=== PATIENT | female | born 1955 | race Caucasian/White ===

== ENCOUNTER 2025-03-24 01:49 | Day surgery (SDC) | payer MEDICARE, SELFPAY ==
[2025-03-14 13:24] VITALS: BMI 22.9
--- OUTSIDE RECORDS SUMMARY | 2025-03-24 01:51 | XMS_ITS | Encounter Summary ---
Author Organization [facility] Healthcare Address [address] [place] [address] Care Team Providers Care Concrete Mixing Plant Superintendent Name Role Phone Vikas Barrera MD Primary Care Provider Encounter Details Date Type Department Care Team (Late st Contact Info) Description 03/22/2025 Telephone [facility] Medical Group Diabetes Endocrine Care at [address] [place] [address] Dede Hess, [address] [facility] [address] [place] [id number] Social History Tobacco Use Types Packs/Day Years Used Date Smoking Tobacco: Never Smokeless Tobacco: Never Alcohol Use Standard Drinks/Week Comments Yes 0 (1 standard drink = 0.6 oz pur e alcohol) AUDIT-C Answer Date Recorded Q1: How often do you have a drink containing alcohol? Never 07/08/2023 Q2: How many drinks containi ng alcohol do you have on a typical day when you are drinking? Patient does not drink Q3: How often do you have si x or more drinks on one occasion? Never 07/08/2023 PHQ-2 Answer Date Recorded PHQ-2 Total Score (If total score is 3 or more points, staff should administer the PHQ-9) 0 12/16/2024 Personal Safety Answer Date Recorded Have you ever been in or are you currently in a harmful physical or emotional relationship or is someone making you feel afraid or unsafe? 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 Patient voices understanding. * Telephone Encounter - Kelsie Minor MA - 03/22/2025 10:08 AM CDT Patient called stating she is having a colonoscopy and the GI doctor told her to call Dr. Hess for insulin recommendations. Please advise, thank you documented in this encounter Plan of Treatment Not on file documented as of this encounter Visit Diagnoses Not on filedocumented in this encounter Additional Health Concerns Infection Onset Date Last Indicated Resolved Time MDR gram neg/ESBL Comment:ESBL E.coli+Urine 04/23/18 04/23/2018 04/23/2018 documented as of this encounter Care Teams Concrete Mixing Plant Superintendent Relationship Specialty Start Date End Date Vikas Barrera MD PCP - General 10/18/16 documented as of this encounter
--- OUTSIDE RECORDS SUMMARY | 2025-03-24 01:51 | XMS_ITS | Encounter Summary ---
Author Organization [facility] Healthcare Address [address] [place] [address] Care Team Providers Care Metal Crafts Teacher Name Role Phone Vikas Barrera MD Primary Care Provider Reason for Visit * Reason Onset Date Comments Information Only 03/23/2025 Encounter Details Date Type Department Care Team (Late st Contact Info) Description 03/23/2025 Nurse Triage [facility] Medical Group Primary Care at [address] [place] [address] Vikas Barrera MD [address] [place] [address] [address] [place] [address] Social History Tobacco Use Types Packs/Day Years [...] on file 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 This nurse referred to not in chart about taking half of insulin prior to procedure. Pt understands the amount she should take. Home care: Pt provided with care advise. Monitor for changing or worsening symptom. Instructed evaluation available 10/02. Disposition Home Care Reason for Disposition General information question, no triage required and triager able to answer question Protocols Used Information Only Call - No [id number]-Tivor-EX * Telephone Encounter - Yazmin Hyatt RN - 03/23/2025 1:55 PM CDT Regarding: Colonoscopy procedure ----- Message from Suzi Dumont sent at 03/23/2025 10:05 AM CDT ----- Symptom Based Call Chief Complaint(s): Colonoscopy procedure Duration: 03/24/25 What type of symptom(s) is the patient experiencing? Non-Emergent. Is this a new or reoccurring symptom(s)? new What have you tried to help your symptom(s)? N/A Why was appointment not scheduled? Requesting advice from clinical senior stereo compiler team lead. Additional Comments: Pt asking should she take her insulin tomorrow before her colonoscopy procedure? Does message need to be routed? Yes-Action Needed documented in this encounter Plan of Treatment Not on file documented as of this encounter Visit Diagnoses Not on filedocumented in this encounter Additional Health Concerns Infection Onset Date Last Indicated Resolved Time MDR gram neg/ESBL Comment:ESBL E.coli+Urine 04/23/18 04/23/2018 04/23/2018 documented as of this encounter Care Teams Metal Crafts Teacher Relationship Specialty Start Date End Date Vikas Barrera MD PCP - General 10/18/16 documented as of this encounter
--- OUTSIDE RECORDS SUMMARY | 2025-03-24 01:51 | XMS_ITS | Encounter Summary ---
Author Organization [facility] Healthcare Address [address] [place] [address] Care Team Providers Care Online Merchant Name Role Phone Vikas Barrera MD Primary Care Provider Reason for Visit * Reason Onset Date Comments Scheduling Appointments 01/03/2021 appt rem blkae; no answer Encounter Details Date Type Department Care Team (Late st Contact Info) Description 01/03/2021 Telephone [facility] [address] [place] [address] Fannie Moss RT Scheduling Appointments (appt reminder; no answer) Social History Tobacco Use Types Packs/Day Years Used Date Smoking Tobacco: Never Smokeless Tobacco: Never Alcohol Use Standard Drinks/Week Comments Yes 0 (1 standard drink = 0.6 oz pur e alcohol) PHQ-2 Answer Date Recorded PHQ-2 Total Score (If total score is 3 or more points, staff should administer the PHQ-9) 0 12/21/2020 Comments No Sex and Gender Information Value Date Recorded Sex Assigned at Not on file 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
--- OUTSIDE RECORDS SUMMARY | 2025-03-24 01:51 | XMS_ITS | Clinical Summary ---
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 Wool Hives Medium 07/03/2023 Medications blood-glucose sensor device Change sensor every 10 days DX E11.65, Z79.4 9 Device 3 02/20/20 19 Active blood glucose diagnostic (OneTouch Verio test strips) strip USE ONE STRIP IN METER THREE TIMES A DAY 300 strip 3 04/15/20 22 Active timolol (TIMOPTIC) 0.5 % ophthalmic solution INSTILL 1 DROP INTO BOTH EYES EVERY DAY 04/03/20 23 Active pen needle, diabetic 32 gauge x 5/32 needle Use to inject insulin up to 4times/day. E11.65 150 each 11 08/12/19 24 Active prednisoLONE acetate (PRED FORTE) 1 % ophthalmic suspensionIndica tions:Unspecifie d corneal scar and opacity Administer 1 drop into both eyes daily 5 mL 11 01/15/20 24 Active insulin glargine (LANTUS) 100 unit/mL (3 mL) pen for injection Inject 15 Units under the skin daily before breakfast E11.9 15 mL 4 09/22/19 25 Active HumaLOG 100 unit/mL pen for injectionIndicat ions:type 2 diabetes mellitus ADMINISTER 3-4 UNITS UNDER THE SKIN THREE TIMES DAILY. Total daily dose - 20 units. E11.9 15 mL 3 09/22/19 25 Active losartan (COZAAR) 25 mg tablet TAKE 1 TABLET(25 MG) BY MOUTH DAILY 100 tablet 1 11/18/19 25 Active linaCLOtide (LINZESS) 145 mcg capsuleIndicatio ns:chronic idiopathic constipation Take 1 capsule (145 mcg total) by mouth daily 30 capsule 11 12/17/19 25 Active hydrocortisone (ANUSOL-HC) 25 mg suppository Insert 1 suppository (25 mg total) into the rectum 2 (two) times a day as needed for hemorrhoids 10 suppository 11 12/17/19 25 Active hydrocortisone (ANUSOL-HC) 2.5 % rectal cream Insert into the rectum 4 (four) times a day as needed for hemorrhoids (rectal discomfort) Apply to affected areas 30 g 12/30/19 25 Active insulin lispro-aabc (LYUMJEV) 100 unit/mL pen for injection Take 3-4 units three times daily with meals 15 mL 3 01/04/20 25 Active Active Problems Problem Noted Date Diagnosed Date Constipation 10/28/2024 Multiple thyroid nodules 07/07/2023 Assessment & Plan (09/02/2023 3:18 PM CONTINUOUS PROCESS COFFEE ROASTER): 08/13. Solid 0.7 cm nodule in the superior right thyroid (TI-RADS 4) does not meet criteria for biopsy or follow-up. Solid 0.8 cm nodule in the inferior right thyroid (TI-RADS 3) does not meet criteria for biopsy or follow-up. Solid 1.9 cm nodule in the mid left thyroid (TI-RADS 3) does not meet criteria for biopsy. Follow-up as below. Solid 1.8 cm nodule in the inferior left thyroid (TI-RADS 4) meets criteria for biopsy at this time.. Opted not to have fine needle biopsy would prefer to have a repeat ultrasound in 6 months for further evaluation Ultrasound ordered Assessment & Plan (07/07/2023 4:01 PM CONTINUOUS PROCESS COFFEE ROASTER): Continue nightguard No masses or lesions noted to the oropharynx Aquaphor ointment to areas of itching Increase Zyrtec twice daily Thyroid Ultrasound Sinusitis, acute 12/19/2022 Assessment & Plan (12/19/2022 2:03 PM CDT): Will treat with azithromycin as this has helped sinus infections in the past. She knows that this likely represents allergic rhinitis. Add fluticasone to her Zyrtec. Call back if no improvement. Dexcom 7 continuous glucose monitoring device Assessment & Plan (09/21/2024 1:42 PM CONTINUOUS PROCESS COFFEE ROASTER): Continuous glucose monitor (cgm) applied from 09/08/2024 to 09/21/2024 This device was placed for monitor and treatment of blood sugar. Interpretation of data- average blood sugar 157. In target range 76%. 0% hypoglycemia. 24% hyperglycemia. Postprandial hyperglycemia mainly after dinner. Assessment & Plan (05/24/2024 10:47 AM CONTINUOUS PROCESS COFFEE ROASTER): Continuous glucose monitor (cgm) applied from 05/11/24 to 05/24/24 This device was placed for monitor and treatment of blood sugar. Interpretation of data- average blood sugar 163. In target range 68%. 0% hypoglycemia. 32% hyperglycemia. Postprandial hyperglycemia mainly after dinner. Assessment & Plan (01/19/2024 10:22 AM CDT): Continuous glucose monitor (cgm) applied from 01/06/24 to 01/19/24 This device was placed for monitor and treatment of blood sugar. Interpretation of data- average blood sugar 156. In target range 73%. 1% hypoglycemia. 26% hyperglycemia. Postprandial hyperglycemia mainly after dinner. Assessment & Plan (09/02/2023 3:20 PM CONTINUOUS PROCESS COFFEE ROASTER): Continuous glucose monitor (cgm) applied from 08/20/23 to 09/02/23 This device was placed for monitor and treatment of blood sugar. Interpretation of data- average blood sugar 168. In target range 60%. 0% hypoglycemia. 40% hyperglycemia. Assessment & Plan (05/29/2023 4:34 PM CONTINUOUS PROCESS COFFEE ROASTER): Continuous glucose monitor (cgm) applied from 05/13/2023 to 05/26/2023 This device was placed for monitor and treatment of blood sugar. Interpretation of data- average blood sugar 179. In target range 52%. 1% hypoglycemia. 47% hyperglycemia. Will upgrade to Dexcom 7. Decreased tresiba 10 units daily. Assessment & Plan (02/25/2023 3:24 PM CDT): Continuous glucose monitor (cgm) applied from 02/12/2023 to 02/25/2023 This device was placed for monitor and treatment of blood sugar. Interpretation of data- average blood sugar 184. In target range 53%. 1% hypoglycemia. 46% hyperglycemia. Will upgrade to Dexcom 7. Decreased tresiba 12 units daily. Assessment & Plan (01/14/2023 2:24 PM CDT): Continuous glucose monitor (cgm) applied from 01/01/2023 to 01/14/2023 This device was placed for monitor and treatment of blood sugar. Interpretation of data- average blood sugar 168. In target range 73%. 1% hypoglycemia. 36% hyperglycemia. Will upgrade to Dexcom 7 Assessment & Plan (10/16/2022 4:59 PM CDT): Continuous glucose monitor (cgm) applied from 10/03/2022 to 10/16/2022 This device was placed for monitor and treatment of blood sugar. Interpretation of data- in range 46% of the time without hypoglycemia. Average blood sugar 187. Hyperglycemia 54%. Rise in blood sugar after 9:00 a.m.. Takes Lantus at 9:00 p.m.. Considered adding a 2nd dose of Lantus to help cover the daytime. In the past she has exercised at a pretty high rate. She hurt her foot and was not exercising as much but she is back at her exercise now. We will wait for the next 2-3 weeks and re-evaluate if her blood sugars have improved since her exercise has been increasing back to its previous level. Hypotony of eye 01/29/2022 Sacroiliac joint pain 09/10/2021 Trochanteric bursitis, right hip 09/10/2021 Iliotibial band syndrome of right side 2 Hip abductor tendonitis, right 09/10/2021 Acute right-sided low back pain with right-sided sciatica 09/10/2021 Central corneal opacity, Crocodile shagreen OU 0 01/03/2021 Trochanteric bursitis of right hip 12/26/2020 Ptosis of both eyelids 09/25/2020 Hyperlipidemia associated with type 2 diabetes norma janina 03/30/2020 Assessment & Plan (01/19/2024 10:19 AM CDT): This is a chronic condition which is not at goal . Goal is LDL less than 70 Refuses statin therapy Encouraged to eat healthy, include fresh fruits and vegetables daily and avoid eating fried foods more than once per week. Encouraged to take medications as prescribed. Assessment & Plan (09/02/2023 3:18 PM CONTINUOUS PROCESS COFFEE ROASTER): This is a chronic condition which is not at goal of LDL less than 70 Allergy to statins, not on statin therapy Encouraged to eat healthy, include fresh fruits and vegetables daily and avoid eating fried foods more than once per week. Encouraged to take medications as prescribed. Assessment & Plan (05/29/2023 4:33 PM CONTINUOUS PROCESS COFFEE ROASTER): This is a chronic condition which is not at goal of LDL less than 70 not on statin therapy- does not tolerate. Encouraged to eat healthy, include fresh fruits and vegetables daily and avoid eating fried foods more than once per week. Encouraged to take medications as prescribed. Assessment & Plan (02/25/2023 3:02 PM CDT): This is a chronic condition which is not at goal of LDL less than 70 Does not tolerate statin therapy. Encouraged to eat healthy, include fresh fruits and vegetables daily and avoid eating fried foods more than once per week. Encouraged to take medications as prescribed. Assessment & Plan (01/14/2023 2:23 PM CDT): This is a chronic condition which is not at goal of LDL less than 70 not on statin therapy due to allergy Encouraged to eat healthy, include fresh fruits and vegetables daily and avoid eating fried foods more than once per week. Encouraged to take medications as prescribed. Assessment & Plan (02/13/2021 1:46 PM CDT): This is a chronic condition which is not at goal. Goal is less than 70. Personally reviewed lipid panel. LDL -100, not on a statin. She does not want to take a statin. Encouraged to eat healthy, include fresh fruits and vegetables daily and avoid eating fried foods more than once per week. Encouraged to take medications as prescribed. Assessment & Plan (07/05/2020 1:36 PM CONTINUOUS PROCESS COFFEE ROASTER): This is a chronic condition which is stable, controlled but not at goal. Goal is less than 70 for a person with diabetes. Personally reviewed lipid panel. Encouraged to eat healthy, include fresh fruits and vegetables daily and avoid eating fried foods more than once per week. Please take medications as prescribed. LDL - 96, not on a statin. Referred otalgia of left ear 01/06/2020 Assessment & Plan (07/08/2023 7:35 AM CONTINUOUS PROCESS COFFEE ROASTER): Improved Continue nightguard No masses or lesions noted to the oropharynx Aquaphor ointment to areas of itching Personal interpretation of CT Neck: left oropharynx fullness, left thyroid nodules, no other areas of masses, polyps or purulence, middle ear, mastoid and sinuses were clear Assessment & Plan (06/18/2023 11:58 AM CONTINUOUS PROCESS COFFEE ROASTER): CT Neck Centralized Scheduling: Continue Nasal saline spray (Simply saline, Little Remedies, Desha, [place]) 2 second sprays or 2 squeezes into each nostril while looking down over the sink, do not need to sniff in. Followed by Flonase 2 sprays into each nostril while looking down over the sink, do not sniff in or blow nose after use for at least 30 minutes daily Change to Cetirizine 5 mg daily (1/2 tablet) Consider physical therapy for jaw pain, continue nightguard Assessment & Plan (01/25/2020 5:17 PM CDT): Nasal saline followed by the Flonase 2 sprays into each nostril while looking down over the sink, do not sniff in or blow nose after use for at least 30 minutes daily for at least one month May stop Zyrtec Try hands free, bluetooth system or speaker phone Continue mouthguard Try to decrease Ibuprofen use Consider Pepcid if no improvement in one month Warm compresses to neck and jaw Referral to physical therapy for neck pain Consider CT Neck if no improvement with Physical therapy Assessment & Plan (01/06/2020 4:27 PM CDT): Ibuprofen 400-600 mg to help with ear pressure Warm compresses to left neck and jaw as often as possible Adenomatous polyp of ascending colon 05/19/2019 Overview (05/19/2019): Added automatically from request for surgery [id number] Medicare annual wellness visit, subsequent 05/19 PVC (premature ventricular contraction) 05/19/20 19 Equivocal stress test 05/19/2019 Recurrent corneal erosion, left 05/18/2019 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 Goal is less than 7%. She reports hypoglycemia with blood sugars in the 70's in the am. Personally reviewed most recent A1c - Lab Results Component Value Date HGBA1C 7.3 05/24/2024 Personally reviewed POC blood sugar- not at goal of 80-180 Lab Results Component Value Date POCGLU 191 05/24/2024 Medication- switch tresiba 12units daily to Lantus 12 units in am to help avoid nocturnal hypoglycemia., Continue Humalog 2-4units 15 minutes prior to meals when blood sugar is greater than 100. She has tried both novolog and humalog with no improvement In A1c. She tried afrezza inhaled insulin but did not like it. Discussed Tresiba is a longer acting insulin. Informed she may need more Lantus due to the shorter action time. Encouraged site rotation to help promote good absorption of fast acting insulin. Reviewed site injections. Monitor blood sugar continuously with cgm. Encouraged annual eye exam. Monofilament foot exam completed. Protective senses diminished but intact eGFR- 86 Kidney function-normal Urine microalbumin/creatinine ratio - at gaol. Goal is <30. Continue losartan. Assessment & Plan (01/19/2024 10:19 AM CDT): This is a chronic condition which is not at goal but improved and close to goal per cgm. Goal is less than 7%. Personally reviewed most recent A1c - Lab Results Component Value Date HGBA1C 7.7 (H) 12/04/2023 Personally reviewed POC blood sugar- at goal of 80-180 Lab Results Component Value Date POCGLU 109 01/19/2024 Medication- continue tresiba 10units daily., Continue Humalog 2-4units 15 minutes prior to meals when blood sugar is greater than 100. Monitor blood sugar continuously with cgm. Encouraged annual eye exam. last dilated eye exam was with Dr. Delarosa Monofilament foot exam completed. Protective senses intact Personally reviewed CMP eGFR- 86 Kidney function-normal Urine microalbumin/creatinine ratio - at goal. Goal is <30 Continue losartan Assessment & Plan (09/02/2023 3:17 PM CONTINUOUS PROCESS COFFEE ROASTER): This is a chronic condition which is at goal of less than 7-8%. Personally reviewed most recent A1c - Lab Results Component Value Date HGBA1C 7.4 09/02/2023 Personally reviewed POC blood sugar- at goal 80-180 Lab Results Component Value Date POCGLU 88 09/02/2023 Medication- continue tresiba 10units daily., Continue Humalog 2-4units 15 minutes prior to meals when blood sugar is greater than 100. Monitor blood sugar continuously with sensor. Encouraged annual eye exam. Monofilament foot exam completed. protective senses intact Personally reviewed CMP eGFR-83 Kidney function- normal Urine microalbumin/creatinine ratio - at goal <30 treated with losartan B/P today- at goal of <140/90. continue losartan Personally reviewed lipid panel. Not at Goal of less than 70. Not on statin therapy. Allergy to statin Assessment & Plan (05/29/2023 4:32 PM CONTINUOUS PROCESS COFFEE ROASTER): This is a chronic condition which is inadequately controlled , worsening not at goal of less than 7%. Personally reviewed most recent A1c - Lab Results Component Value Date HGBA1C 7.8 (H) 05/27/2023 Personally reviewed POC blood sugar- not at goal 80-180 Lab Results Component Value Date POCGLU 200 05/29/2023 Medication- decrease tresiba 10units daily., Continue Humalog 2-4units 15 minutes prior to meals when blood sugar is greater than 100. Will switch to Afrezza to avoid hypoglycemia after meals. She has tried both novolog and humalog with no improvement In A1c. She has increasing hypoglycemia after taking Humalog 2 units Monitor blood sugar continuously with dexcom 7 sensor. Encouraged annual eye exam. Monofilament foot exam completed. protective senses intact Personally reviewed CMP eGFR-83 Kidney function- normal Urine microalbumin/creatinine ratio - at goal <30 treated with losartan B/P today- at goal of <140/90. continue losartan Personally reviewed lipid panel. Not at Goal of less than 70. Does not tolerate statin therapy. Assessment & Plan (02/25/2023 3:00 PM CDT): This is a chronic condition which is improving and at goal of less than 7-8%. Personally reviewed most recent A1c - Lab Results Component Value Date HGBA1C 7.5 (H) 01/02/2023 Personally reviewed POC blood sugar- not at goal 80-180 Lab Results Component Value Date POCGLU 212 02/25/2023 Medication- decrease tresiba 12 units daily. Continue Humalog 2-4units 15 minutes prior to meals when blood sugar is greater than 100. Monitor blood sugar continuously with dexcom 7 sensor. Encouraged annual eye exam. Monofilament foot exam completed. protective senses intact Personally reviewed CMP eGFR- 77 Kidney function- normal Urine microalbumin/creatinine ratio - not at goal <30 treated with losartan B/P today- not at goal of <140/90. continue losartan Personally reviewed lipid panel. Not at Goal of less than 70. Allergy to statins Assessment & Plan (01/14/2023 2:22 PM CDT): This is a chronic condition which is at goal of less than 8%. Personally reviewed most recent A1c - Lab Results Component Value Date HGBA1C 7.5 (H) 01/02/2023 Personally reviewed POC blood sugar- at goal 80-180 Lab Results Component Value Date POCGLU 175 01/14/2023 Medication- Continue switch lantus to tresiba 12 units daily. May titrate up 1 units at a time to control fasting blood sugar. Continue Humalog 2-4units 15 minutes prior to meals when blood sugar is greater than 100. Monitor blood sugar continuously with dexcom 7 sensor. Encouraged annual eye exam. Monofilament foot exam completed. protective senses intact Personally reviewed CMP eGFR- 77 Kidney function- normal Urine microalbumin/creatinine ratio - not at goal <30 treated with losartan B/P today- at goal of <140/90. continue losartan Personally reviewed lipid panel. Not at Goal of less than 70. Allergy to statins Assessment & Plan (10/16/2022 4:56 PM CDT): This is a chronic condition which is at goal of between 7-8% without hypoglycemia. Personally reviewed most recent A1c - Lab Results Component Value Date HGBA1C 7.6 10/16/2022 Personally reviewed POC blood sugar- not at goal 80-180 Lab Results Component Value Date POCGLU 140 10/16/2022 Medication- Continue Lantus 13 units daily. Humalog 2-4units 15 minutes prior to meals when blood sugar is greater than 100. Monitor blood sugar 4 times a day using Dexcom 6. Monofilament foot exam completed, loss of protective senses at previous visit. No neuropathy. Urine microalbumin/creatinine ratio - <35 normal - At goal of less than 30 Kidney function eGRF-88 normal kidney fucntion BP today- at goal of less than 140/90. continue losartan LDL -84, not on a statin. Not at goal of less than 70 for a person with diabetes. Will be seeing Dr. Delarosa for eye exams moving forward. Assessment & Plan (06/05/2022 12:25 PM CONTINUOUS PROCESS COFFEE ROASTER): This is a chronic condition which is at goal without hypoglycemia Labs reviewed personally. A1c 7.5 At goal is between 7-8- avoiding hypoglycemia. Medication- increase Lantus 13 units daily. Humalog 2-4units 15 minutes prior to meals when blood sugar is greater than 100. Monitor blood sugar 4 times a day using Dexcom 6. Monofilament foot exam completed, loss of protective senses at previous visit. No neuropathy. Urine microalbumin/creatinine ratio - <35 normal - At goal of less than 30 Kidney function eGRF-88 normal kidney fucntion BP today- at goal of less than 140/90. continue losartan LDL -84, not on a statin. Not at goal of less than 70 for a person with diabetes. No history of macrovascular disease - [place]. DexCom 6 continuous glucose monitor applied from05/23/22 to 06/05/2022 This device was placed for monitor and treatment of blood sugar. Average blood sugar- 163 Variability- 30% ( goal < 36%) Interpretation of data- In target range of 68%, Without hypoglycemia. Assessment & Plan (12/18/2021 7:42 PM CDT): This is a chronic condition which is at slightly above goal with hypoglycemia. Labs reviewed personally. A1c 7.4 At goal is between 7-8- avoiding hypoglycemia. Medication- Lantus 12 units daily. Humalog 2-4units 15 minutes prior to meals when blood sugar is greater than 100. Monitor blood sugar 4 times a day using Dexcom 6. Monofilament foot exam completed, loss of protective senses at previous visit. No neuropathy. Urine microalbumin/creatinine ratio - 22, normal - At goal of less than 30 Kidney function eGRF-94, BUN-20 creatinine- 0.70- normal kidney fucntion BP today- 132/78, currently on losartan at goal of less than 140/90 . LDL -91, not on a statin. Not at goal of less than 70 for a person with diabetes. No history of macrovascular disease - [place]. DexCom 6 continuous glucose monitor applied from 12/05/21 to 12/17/2021 This device was placed for monitor and treatment of blood sugar. Average blood sugar- 172 Variability- 46% ( goal < 36%) Data Analysis Very High >250 mg/dl- 3.7 % High 181-250 mg/dl 44.3% Target 70-180 mg/dl 55.4% Low 54-69 mg/dl 0.3% Very Low <50 mg/dl 0 % Interpretation of data- In target range of 55.4%, Without hypoglycemia. Assessment & Plan (09/04/2021 5:29 PM CONTINUOUS PROCESS COFFEE ROASTER): This is a chronic condition which is at slightly above goal with hypoglycemia. Labs reviewed personally. A1c 7.3 At goal is between 7-8- avoiding hypoglycemia. Medication- decrease Lantus 11 units daily. May decrease to 9 units the evening prior to exercise. Humalog 2-5 units 15 minutes prior to meals when blood sugar is greater than 100. Monitor blood sugar 4 times a day using Dexcom 6. Monofilament foot exam completed, loss of protective senses at previous visit. No neuropathy. Urine microalbumin/creatinine ratio - 22, normal - At goal of less than 30 Kidney function eGRF-91, BUN-23 creatinine- 0.65- normal kidney fucntion BP today- 144/60, currently on losartan at goal of less than 140/90 . LDL -91, not on a statin. Not at goal of less than 70 for a person with diabetes. No history of macrovascular disease - [place]. DexCom 6 continuous glucose monitor applied from to 09/04/2021 This device was placed for monitor and treatment of blood sugar. Average blood sugar- 164 Variability- 27.1% ( goal < 36%) Data Analysis Very High >250 mg/dl- 4.3 % High 181-250 mg/dl 33.1% Target 70-180 mg/dl 66.8% Low 54-69 mg/dl 0.2% Very Low <50 mg/dl 0.1 % Interpretation of data- In target range of 66.8%, With nocturnal hypoglycemia between 7am and 10am. Decreased activity with tendonitis. Basal insulin decreased. Assessment & Plan (05/30/2021 9:20 AM CONTINUOUS PROCESS COFFEE ROASTER): This is a chronic condition which is at slightly above goal with out hypoglycemia. this is do to change in activity. Labs reviewed personally. A1c 7.3 At goal is between 7-8- avoiding hypoglycemia. Medication- Continue Lantus 12 units daily. May decrease to 9 units the evening prior to exercise. Humalog 2-4 units 15 minutes prior to meals when blood sugar is greater than 100. Monitor blood sugar 4 times a day using Dexcom 6. Monofilament foot exam completed, loss of protective senses at previous visit. No neuropathy. Urine microalbumin/creatinine ratio - 22, normal - At goal of less than 30 Kidney function eGRF-91, BUN-23 creatinine- 0.65- normal kidney fucntion BP today- 140/72, currently on losartan at goal of less than 140/90 . LDL -91, not on a statin. Not at goal of less than 70 for a person with diabetes. No history of macrovascular disease - [place]. DexCom 6 continuous glucose monitor applied from 05/17/2021 to 05/30/2021 This device was placed for monitor and treatment of blood sugar. Average blood sugar- 177 Variability- 28.1% ( goal < 36%) Data Analysis Very High >250 mg/dl- 6.5 % High 181-250 mg/dl 43.2% Target 70-180 mg/dl 56.3% Low 54-69 mg/dl 0.5% Very Low <50 mg/dl 0.0 % Interpretation of data- In target range of 56.3%, Without hypoglycemia. Decreased activity with fractured foot- now healed. Increasing activity. Assessment & Plan (02/13/2021 1:51 PM CDT): This is a chronic condition which is at slightly above goal with out hypoglycemia. this is do to change in activity and steroid injection. Labs reviewed personally. A1c 7.3 At goal is between 7-8- avoiding hypoglycemia. Medication- Continue Lantus 12 units daily. May decrease to 9 units the evening prior to exercise. Humalog 2-4 units 15 minutes prior to meals when blood sugar is greater than 100. Monitor blood sugar 4 times a day using Dexcom 6. Monofilament foot exam completed, loss of protective senses at previous visit. No neuropathy. Urine microalbumin/creatinine ratio - 22, normal - At goal of less than 30 Kidney function eGRF-91, BUN-21 creatinine- 0.78- normal kidney fucntion BP today- 128/78, currently on losartan at goal of less than 140/90 . LDL -100, not on a statin. Not at goal of less than 70 for a person with diabetes. No history of macrovascular disease - [place]. DexCom 6 continuous glucose monitor applied from 01/31/2021 to This device was placed for monitor and treatment of blood sugar. Average blood sugar- 158 Variability- 26.7% ( goal < 36%) Data Analysis Very High >250 mg/dl- 3.4 % High 181-250 mg/dl 25.0% Target 70-180 mg/dl 74.9% Low 54-69 mg/dl 0.2 % Very Low <50 mg/dl 0.0 % Interpretation of data- In target range of 75%, Without hypoglycemia. Assessment & Plan (10/05/2020 2:29 PM CDT): This is a chronic condition which is stable, controlled, improving, at goal with out hypoglycemia. Labs reviewed personally. A1c 7.0, down from 7.6%. At goal is between 7-8- avoiding hypoglycemia. Medication- Continue Lantus 12 units daily. May decrease to 9 units the evening prior to exercise. Humalog 2-4 units 15 minutes prior to meals when blood sugar is greater than 100. Monitor blood sugar 4 times a day using Dexcom 6. Monofilament foot exam completed, loss of protective senses at previous visit. No neuropathy. Urine microalbumin/creatinine ratio - 22, normal - At goal of less than 30 Kidney function eGRF-88, BUN-24, creatinine- 0.71- normal kidney fucntion BP today- 132/64, currently on losartan at goal of less than 140/90 . LDL - 96, not on a statin. Not at goal of less than 70 for a person with diabetes. No history of macrovascular disease [place]. Assessment & Plan (07/05/2020 1:37 PM CONTINUOUS PROCESS COFFEE ROASTER): This is a chronic condition which is stable, controlled, improving, at goal. Labs reviewed personally. A1c 7.6 Goal is between 7-8- avoiding hypoglycemia. Medication- Continue Lantus 12 units daily. May decrease to 9 units the evening prior to exercise. Humalog 2-4 units 15 minutes prior to meals when blood sugar is greater than 100. Monitor blood sugar 4 times a day using Dexcom 6. Monofilament foot exam completed, loss of protective senses at previous visit. No neuropathy. Urine microalbumin/creatinine ratio - 22, normal - At goal of less than 30 Kidney function eGRF-88, BUN-24, creatinine- 0.71- normal kidney fucntion BP today- 120/58, currently on losartan at goal of less than 140/90 . LDL - 96, not on a statin. Not at goal of less than 70 for a person with diabetes. No history of macrovascular disease [place]. Assessment & Plan (04/04/2020 5:14 PM CDT): This is a chronic condition which is stable, controlled, improving, but not at goal. Labs reviewed. A1c today-7.3- down from 7.8 Medication- Continue Lantus 12 units daily. May decrease to 9 units the evening prior to exercise. Monitor blood sugar 4 times a day. Obtain and begin using Dexcom 6. Monofilament foot exam completed, loss of protective senses. Urine microalbumin/creatinine ratio - normal Kidney function eGRF- 77, BUN-17, creatinine- 0.80 BP today- 124/70, currently on losartan LDL - 117, currently not on a statin No history of macrovascular disease - [place]. Assessment & Plan (12/27/2019 2:10 PM CDT): Diagnosed in 1980. Diagnosed with Gastroparesis Control : stable control Will retry ordering Dexcom. She felt the DexCom was helping patient in monitoring sugars, but it appears her insurance began denying coverage. She has documented low blood sugars. The reading did not register on her current meter, only lo registered. She checks her blood sugars 4-5 times/day. A1c 7.9% on 12/27/2019 A1c 7.8% on 04/29/19. A1c 7.5% on 12/04/18. A1c 7.9% in April/2018 A1c 7.5% in November/2017. A1c 7.7% in December 2016. Kidney: normal kidney functions GFR 77 on 11/09/2019 Neuropathy : none. Eye : legally blind uses a cane for walking. Assessment & Plan (06/14/2019 1:43 PM CONTINUOUS PROCESS COFFEE ROASTER): Got severely constipated when cut down on fiber because of the gastroparesis. Long discussion on balalce of fiber, fluid and miralax. I reviewed all the notes,images,labs procedures. Colonoscopy scheduled for 06/29. Hypertension associated with diabetes 05/15/2019 Assessment & Plan (05/24/2024 10:46 AM CONTINUOUS PROCESS COFFEE ROASTER): This is a chronic condition which is at goal. Goal is less than 140/90 Continue losartan. Encouraged to monitor weight and B/P at home. Assessment & Plan (01/19/2024 10:20 AM CDT): This is a chronic condition which is not at goal upon arrival to the office. At goal after 10 minutes of rest. Goal is less than 140/90 Personally reviewed labs. Continue losartan Encouraged to monitor weight and B/P at home. Explained correct way to take blood pressure. - After 5 minutes of sitting calmly with arm supported. Encouraged to void caffeine and excessive alcohol consumption as this will elevate B/P Encouraged to take medications as prescribed. Assessment & Plan (09/02/2023 3:18 PM CONTINUOUS PROCESS COFFEE ROASTER): This is a chronic condition which is at goal of less than 140/90 Personally reviewed labs. Continue losartan Encouraged to monitor weight and B/P at home Encouraged to take medications as prescribed. Assessment & Plan (05/29/2023 4:32 PM CONTINUOUS PROCESS COFFEE ROASTER): This is a chronic condition which is at goal of LDL less than 70 Continue losartan. Encouraged to eat healthy, include fresh fruits and vegetables daily and avoid eating fried foods more than once per week. Encouraged to take medications as prescribed. Assessment & Plan (01/14/2023 2:23 PM CDT): This is a chronic condition which is at goal of less than 140/90 Personally reviewed labs. Continue losartan Encouraged to monitor weight and B/P at home Encouraged to take medications as prescribed. Assessment & Plan (12/19/2022 2:04 PM CDT): Blood pressure well controlled on losartan Assessment & Plan (12/06/2022 2:17 PM CDT): Recommend DASH diet, heart-healthy lifestyle, exercise. Discussed the risks of hypertension. Assessment & Plan (10/16/2022 4:59 PM CDT): This is a chronic condition which is at goal of less than 140/90 Personally reviewed labs. Continue on losartan Encouraged to void caffeine and excessive alcohol consumption as this will elevate B/P Encouraged to monitor weight and B/P at home Encouraged to take medications as prescribed. Assessment & Plan (06/05/2022 12:26 PM CONTINUOUS PROCESS COFFEE ROASTER): This is a chronic condition which is at goal of less than 140/90 Personally reviewed labs. Continue on losartan Encouraged to void caffeine and excessive alcohol consumption as this will elevate B/P Encouraged to monitor weight and B/P at home Encouraged to take medications as prescribed. Assessment & Plan (12/18/2021 7:44 PM CDT): This is a chronic condition and is stable, controlled, at goal. Goal is <140/90 Personally reviewed labs. Avoid caffeine, caffeine will raise blood pressure and excessive alcohol consumption. Monitor your weight and B/P. Please take medications as prescribed. BP today- 132/78, currently on losartan at goal of less than 140/90 . Assessment & Plan (05/30/2021 8:56 AM CONTINUOUS PROCESS COFFEE ROASTER): This is a chronic condition and is stable, controlled, at goal. Goal is <140/90 Personally reviewed labs. Avoid caffeine, caffeine will raise blood pressure and excessive alcohol consumption. Monitor your weight and B/P. Please take medications as prescribed. BP today- 140/72, currently on losartan at goal of less than 140/90 . Assessment & Plan (07/05/2020 1:38 PM CONTINUOUS PROCESS COFFEE ROASTER): This is a chronic condition and is stable, controlled, at goal. Goal is <140/90 Personally reviewed labs. Avoid caffeine, caffeine will raise blood pressure and excessive alcohol consumption. Monitor your weight and B/P. Please take medications as prescribed. BP today- 120/58, currently on losartan at goal of less than 140/90 . Assessment & Plan (04/04/2020 5:15 PM CDT): This is a chronic condition and is stable, controlled at goal. Reviewed labs. Avoid caffeine, caffeine will raise blood pressure and excessive alcohol consumption. Monitor your weight and B/P. Please take medications as prescribed. BP today- 124/70, currently on losartan Moderate episode of recurrent major depressive d isorder 05/15/2019 Burning chest pain 03/12/2019 Vitreous syneresis of both eyes 02/12/2019 Allergic rhinitis 10/23/2018 Assessment & Plan (04/14/2023 10:25 AM CDT): Nasal saline spray (Simply saline, Little Remedies, Desha, Nahunta) 2 second sprays or 2 squeezes into each nostril while looking down over the sink, do not need to sniff in. Followed by Flonase 2 sprays into each nostril while looking down over the sink, do not sniff in or blow nose after use for at least 30 minutes daily Change to Cetirizine 5 mg daily (1/2 tablet) Assessment & Plan (01/25/2020 11:51 AM CDT): Nasal saline followed by the Flonase 2 sprays into each nostril while looking down over the sink, do not sniff in or blow nose after use for at least 30 minutes daily for at least one month May stop Zyrtec Try hands free, bluetooth system or speaker phone Continue mouthguard Try to decrease Ibuprofen use Consider Pepcid if no improvement in one month Assessment & Plan (01/06/2020 4:26 PM CDT): Nasal saline spray (Simply saline, Little Remedies, Desha, Nahunta) 2 second sprays or 2 squeezes into each nostril while looking down over the sink, do not need to sniff in. 1-2 times daily Restart Zyrtec (Cetirizine) 10 mg daily Avoid ear cleaning techniques Avoid water to ears Ibuprofen 400-600 mg to help with ear pressure Assessment & Plan (12/30/2018 8:48 AM CDT): Continue nasal saline twice daily and as needed May discontinue Flonase Continue Zyrtec Start Zpak with a meal: 500 mg on day and 250 mg on Days 2 through Day 11 Follow up 6 weeks after root canal if no improvement in pain. Consider CT Sinus at that time. Assessment & Plan (10/23/2018 2:16 PM CDT): Nasal saline followed by Flonase 2 sprays into each nostril while looking down over the sink, do not sniff in or blow nose after use daily, place up to but not into nostrils before spray Avoid ear cleaning techniques Follow up in 6 weeks Continue Zyrtec, if improvement noted, will suggest maintaining on one of the other Corneal edema OS 02/19/2018 Assessment & Plan (01/03/2021 4:54 PM CDT): Last seen by Dr. Farr in early September, with progressive decrease of vision left eye (OS) Long standing history of uveitic glaucoma; Had had had glaucoma tube shunt in left eye (OS) by Dr. Taveras and trabeculectomy in OD Purportedly intraocular pressure (IOP) stable right eye (OD) with timolol, however, today's intraocular pressure (IOP) is 21 OU (Hx of acceptable intraocular pressure (IOP) left eye (OS) without timolol) RTC 4 months intraocular pressure (IOP) check Has had longstanding crocodile shagreen OU (last seen by me in 2017) No progressive change of corneal opacities in right eye (OD); however, there is increasing corneal scarring and edema in OS Has been using Brent sharmila at bedtime (qhs) both eyes (OU) Pt returned to discuss about cornea surgery at this time (previous cornea visits discussed about penetrating keratoplasty (PKP) may snuff out remaining visual acuity (VA) because of glaucoma and inflammation) Long discussion about the guarded visual prognosis of penetrating keratoplasty (PKP) for visual rehabilitation for left eye (OS) (vision in 2018 was 20/200 and had B scan both eyes (OU) in 2019 which revealed no evident retinal detachment (RD) or gross pos seg pathology Will consider penetrating keratoplasty (PKP) left eye (OS) only if she understands the potential risks and is willing to undergo surgical intervention She will contact us for surgery if interested. Assessment & Plan (10/24/2018 10:43 PM CDT): Progressive vision loss, defers PKP Assessment & Plan (02/20/2018 12:56 PM CDT): Progressive decrease in Va- monocular status. ? penetrating keratoplasty (PKP) candidate as intraocular pressure (IOP) under excellent control. Dr. Rosario reportedly indicated that surgery was too high risk due to tube in eye. 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 CPM F/U 1 year unless she decides to pursue surgery Assessment & Plan (02/20/2018 12:55 PM CDT): intraocular pressure (IOP) excellent- status post (s/p) GDI both eyes (OU) on timolol only. CPM Resolved Problems Problem Noted Date Diagnosed Date Resolved Date Discoloration of nail 04/05/20222022 Assessment & Plan (04/05/2022 12:44 PM CDT): Likely 2/2 bruising from finger sticks Will get cbc iron panel and ferritin F/u with pcp Vitamin D deficiency 05/22/2021 021 Palpitations 05/19/2019 10/05/2020 Dental infection 12/29/2018 05/15/2019 Assessment & Plan (12/30/2018 8:48 AM CDT): Continue nasal saline twice daily and as needed May discontinue Flonase Continue Zyrtec Start Zpak with a meal: 500 mg on day and 250 mg on Days 2 through Day 11 Follow up 6 weeks after root canal if no improvement in pain. Consider CT Sinus at that time. TMJ dysfunction discussed and Handout provided Bilateral impacted cerumen 10/23/2018 1 Assessment & Plan (10/23/2018 2:16 PM CDT): Avoid ear cleaning techniques Gastroparesis 10/13/2018 05/15/2019 Assessment & Plan (10/13/2018 2:59 PM CDT): 11 years ago and in 2017 had gastric emptying tests documenting delayed emptying. Presently she is asx and has learned to alter her intake to cope with the problem (degree in nutrition). She will return prn if sx worsen. Visual disturbance 02/12/2017 9 Assessment & Plan (02/12/2017 4:14 PM CDT): Will proceed with MRI of the brain with and without contrast. For her chronic ophthomolic conditions she will continue to follow with her professor of anthropology as directed. Intractable post-traumatic headache 02/12/2017 05/07/2018 Assessment & Plan (02/12/2017 4:13 PM CDT): I recommend we proceed with MRI of the brain with and without contrast. Further direction pending these results. Patient should anticipate a call for me to review these results within 3 days of having testing completed. She is to contact the office if she has not heard from me within this time frame. She verbalized understanding and was in agreement with the plan of care. Anxiety 02/12/2017 02/13/2021 Assessment & Plan (03/16/2019 10:09 AM CDT): Certainly this could be a contributing factor given findings of PVCs and CPE occurring mostly at rest. Cnt. W/p.r.n. Use of alprazolam, further recommendations pending results of stress testing to discuss need for maintenance medication. Assessment & Plan (02/12/2017 4:15 PM CDT): I refilled her Xanax for p.r.n. use. We discussed dosage, use and potential side effect of medication. Patient also has a history of irritable bowel disorder this is been worsened with her increased anxiety. Previously she has had a nice response to dicyclomine. This was refilled for p.r.n. use as well.. Injury of head 04/19/2015 05/15/2019 Overview (10/26/2016): Head trauma Type 2 diabetes mellitus 12/04/2013 Overview (10/25/2016): DMII WO CMP UNCNTRLD Assessment & Plan (10/24/2018 10:44 PM CDT): Unable to perform fundus exam - no view B scan does not reveal retinal detachment (RD) or heme Encounters Date Type Department Care Team Description 03/23/2025 Nurse Triage [facility] Medical [facility] Primary Care at [address] [place] [address] German Barrera MD 03/22/2025 Telephone [facility] Diabetes Endocrine Care at [address] [place] [address] Dede Hess DO 03/02/2025 2:00 PM CDT Lab [facility] Outpatient Lab - Outpatient Center at [address] [address] Constipation (Primary Dx); Abdominal pain, generalized; Gastric tympany; Biliary cirrhosis (HCC) 03/02/2025 1:58 PM CDT - 03/02/2025 11:59 PM CDT Hospital Encounter [facility] Radiology - Outpatient Center at [address] [address] Chronic idiopathic constipation; Abdominal distension (gaseous); Generalized abdominal pain Discharge Disposition: Discharge to home or self care 02/24/2025 Telephone [facility] Diabetes Endocrine Care at [address] [place] [address] Dede Hess DO 01/28/2025 Telephone [facility] Medical [facility] Primary Care at [address] [place] [address] German Barrera MD Medical Question/Miscellaneous 01/25/2025 Telephone [facility] Primary Care at [place] [address] [address] German Barrera MD Medical Question/Miscellaneous 01/10/2025 Orders Only [facility] Primary Care at [address] [address] German Barrera MD Left upper quadrant abdominal pain (Primary Dx) 01/04/2025 Orders Only [facility] Primary Care at [address] [phone] German Barrera MD Constipation, unspecified constipation type (Primary Dx); Hemorrhoids, unspecified hemorrhoid type 01/03/2025 9:30 AM CDT Office Visit [facility] Diabetes Endocrine Care at [address] [phone] Dede Hess, Type 2 diabetes mellitus without complication, with long-term current use of insulin (HCC) (Primary Dx); Statin myopathy 12/30/2024 Telephone [facility] Primary Care at [address] [address] German Barrera MD Recommendation Request 12/29/2024 Orders Only [facility] Primary Care at [address] [address] German Barrera MD 12/28/2024 Telephone [facility] Primary Care at [address] [address] German Barrera MD 12/27/2024 10:00 AM CDT Office Visit [facility] Medicine Ophthalmology [address] [place] [address] [address] [place] [address] Annmarie Tafoya MD PhD Central corneal opacity, Kristinacogladys quintero OU (Primary Dx) 12/23/2024 11:00 AM CDT Office Visit [facility] Medicine Ophthalmology [address] [place] [address] [address] [place] [address] Louis Farr, OD 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, indeterminate stage (Primary Dx); Central corneal opacity, Crocodile shagreen OU; Type 2 diabetes mellitus with other ophthalmic complication, with long-term current use of insulin (HCC) from Last 3 Months Immunizations Immunization Administration Dates Next Due Influenza, Quadrivalent, Hig h Dose, Preservative Free, Intrr 05/28/2022,05/30/2021,05/16/2020 Influenza, Quadrivalent, Spl it, Intramuscular 04/15/2014 Influenza, Quadrivalent, Spl it, Preservative Free, Intradermal 04/30/2016,04/19/2015 Influenza, Quadrivalent, Spl it, Preservative Free, Intramuscular 05/01/2017 Influenza, Split 04/29/2010 Influenza, Trivalent, High D ose, Split, Preservative Free, Intramuscular 05/11/2019,05/07/2018 Influenza, Trivalent, IM (MDV) 06/02/2013,2010 Influenza, Unspecified 12/16/2024(Deferr ed: Patient Refused),10/18/2024(Deferred: Patient Refused),06/03/2024(Deferred: Patient Refused),03/30/2024(Deferred: Patient Refused),04/05/2022(Deferred: Patient Refused),05/22/2021(Deferred: Patient Refused),03/03/2020(Deferred: Patient Refused - not available) Pfizer SARS-CoV-2 Monovalent Vaccination (12+ Yrs) PURPLE 11/09/2020,10/17/2020 Pneumococcal Conjugate PCV 13 04/19/2015 Pneumococcal Polysaccharide PPV23 03/03/2020 Surgical History Surgery Date Site/Laterality Comments VAGINAL HYSTERECTOMY 07/21/1986 - 07/20/1987 AUB OTHER SURGICAL HISTORY glaucoma: drops, surgeries EYE SURGERY 07/21/1984 - 07/20/1985 ALT CATARACT EXTRACTION Bilateral COLONOSCOPY 07/06/2013 EXPLORATORY LAPAROTOMY 07/21/1977 - 07/20/1978 Repair of uterine rupture Medical History Medical History Date Comments Hx Other Medical back pain Type 2 diabetes mellitus Diabete s type 2 Hx Other Medical 1981 Diabetes mellit us, type 2 Hypertension 2007 Hypertension Glaucoma 1985 Glaucoma Hx Other Medical 08/23/2012 ER visit; Comme nts: broke great toe-rt foot Hx Other Medical ENDO Glaucoma glaucoma Corneal edema Palpitations 05/19/2019 PVC (premature ventricular contraction) 05/19/2019 Precordial pain 03/12/2019 Family History Medical History Relation Name Comments Brain cancer Brother Breast cancer Cousin 1 Cancer Cousin 2 SUPERVISORY CBP OFFICER, details la cking Coronary artery disease Father Padmini nary artery disease; Heart failure Father Hypertension Mother Hypertension; Multiple myeloma Mother Cancer -mul tiple myeloma; Cause of : Cancer -multiple myeloma Relation Name Status Comments Brother Cousin 1 Cousin 2 Father Mother Social History Tobacco Use Types Packs/Day Years Used Date Smoking Tobacco: Never Smokeless Tobacco: Never Tobacco Cessation:Counseling Given: Not Answered Alcohol Use Standard Drinks/Week Comments Yes 0 [...] on file Legal Sex Female 11:52 PM CONTINUOUS PROCESS COFFEE ROASTER Gender Identity Female 05/15/2020 3:19 PM CDT Sexual Orientation Straight 05/15/2020 3: 19 PM CDT Obstetrics History Para Term AB IAB SAB Ectopic Multiple Livin g Live Births 2 2 2 2 2 Date Outcome GA Total Labor Labor/2nd/3rd Weight Sex Type Anes PTL Lilo A1 A5 Name Clin 1977 Term 2.608 kg (5 lb 12 oz) F Livin g Complications:Uterine Ruptur e 1980 Term 4.479 kg (9 lb 14 oz) F Vagina l Livin g Last Filed Vital Signs Vital Sign Reading Time Taken Comments Blood Pressure 134/80 01/03/2025 9:22 AM CDT Pulse 72 01/03/2025 9:22 AM CDT Temperature 36.6 C (97.8 F) 12/16/2024 2:09 PM CDT Respiratory Rate 16 12/16/2024 2:09 PM CDT Oxygen Saturation 98% 12/16/2024 2:09 PM CDT Inhaled Oxygen Concentration - - Weight 53.6 kg (118 lb 3.2 oz) 01/03/2025 9:22 A M CDT Height 152.4 cm (5') 01/03/2025 9:22 AM CDT Body Mass Index 23.08 01/03/2025 9:22 AM CDT Plan of Treatment Health Maintenance Due Date Last Done Comments DTaP/Tdap/Td Vaccine (1 - Tdap) 02/19/1964 Hepatitis B Screening 1971 Zoster Vaccine (1 of 2) 2003 Breast Cancer Screening-Mammogram 04/23/2017 016 Osteoporosis Screening-Bone Density Scan 01/04/2023 01/04/2021, 04/16/2011, 04/16/2011 Colon Cancer Screening-Colonoscopy 06/29/2024 06/29/2019, 07/06/2013, 07/06/2013, Additional history exists Covid-19 Vaccine (3 - 2024-2 6 season) 2025 11/09/2020, 10/17/2020 Influenza Vaccine (#1) 2025 , 05/30/2021, 05/16/2020, Additional history exists Albumin Creatinine Ratio, Urine 05/31/2025 05/31/2024, 05/27/2023, 05/24/2022, Additional history exists Well Visit 65+ 06/03/2025 06/03/2024, 03/2023, 05/28/2022, Additional history exists Hemoglobin A1C 06/16/2025 12/14/2024, 0310/2024, 05/31/2024, Additional history exists Lipid Panel 12/14/2025 12/14/2024, 05/21, 12/04/2023, Additional history exists Depression Screening 12/16/2025 12/16/2024, 10/18/2024, 06/03/2024, Additional history exists Fall Risk Assessment 12/16/2025 12/16/2024, 10/18/2024, 06/03/2024, Additional history exists Foot Exam 12/16/2025 12/16/2024, 05/21, 05/24/2024, Additional history exists eGFR 03/02/2026 03/02/2025, 11/19, 05/31/2024, Additional history exists Colon Cancer Screening-DNA Stool 06/29/2027 06/29/2024, 06/29/2019, 07/06/2013, Additional history exists Hepatitis C Screening Completed 04/17/2017, 017 Colon Cancer Screening-CT Colonography Discontinued 06/29/2019, 07/06/2013, 07/06/2013, Additional history exists Colon Cancer Screening-Sigmoidoscopy Discontinued 06/29/2019, 07/06/2013, 07/06/2013, Additional history exists Pneumococcal vaccine 65+ Completed 03/03/2020, 03/23 Colon Cancer Screening-FIT Discontinued 06/29, 06/29/2019, 07/06/2013, Additional history exists Dilated Eye Exam Discontinued 09/29/2024, , 01/19/2021, Additional history exists Procedures Procedure Name Priority Date/Time Associated Diagnosis Comments EGFR Routine 03/02/2025 2:30 PM CDT Constipation Abdominal pain, generalized Gastric tympany Biliary cirrhosis (HCC) BILIRUBIN, DIRECT Routine 03/02/2025 2:3 0 PM CDT Constipation Abdominal pain, generalized Gastric tympany Biliary cirrhosis (HCC) DIFFERENTIAL AUTO Routine 03/02/2025 2:3 0 PM CDT Constipation Abdominal pain, generalized Gastric tympany Biliary cirrhosis (HCC) COMPREHENSIVE METABOLIC PANEL Routine 03/02/2025 2:30 PM CDT Constipation Abdominal pain, generalized Gastric tympany Biliary cirrhosis (HCC) TSH Routine 03/02/2025 2:30 PM CDT Constipation Abdominal pain, generalized Gastric tympany Biliary cirrhosis (HCC) CBC WITH AUTO DIFFERENTIAL Routine 03/02/2025 2:30 PM CDT Constipation Abdominal pain, generalized Gastric tympany Biliary cirrhosis (HCC) XR ABDOMEN AP 1 VIEW Schedule Routine, Read Routine (OP Routine) 03/02/2025 2:08 PM CDT Chronic idiopathic constipation Abdominal distension (gaseous) Generalized abdominal pain HEMOGLOBIN A1C Routine 12/14/2024 9:18 AM CDT Hyperlipidemia associated with type 2 diabetes mellitus (HCC) LIPID PANEL Routine 12/14/2024 9:18 AM CDT Hyperlipidemia associated with type 2 diabetes mellitus (HCC) DIABETIC EYE EXAM Routine 09/29/2024 STOOL DNA COLOGUARD Routine 06/29/2024 9:45 AM CONTINUOUS PROCESS COFFEE ROASTER Colon cancer screening ALBUMIN CREATININE RATIO, URINE Routine 05/31/2024 9:16 AM CONTINUOUS PROCESS COFFEE ROASTER Hyperlipidemia associated with type 2 diabetes mellitus (HCC) DEXA AXIAL SKELETON BONE DENSITY 1 OR MORE SITES Schedule Routine, Read Routine (OP Routine) 01/04/2021 1:28 PM CDT Other specified disorders of bone density and structure, multiple sites COLONOSCOPY 06/29/2019 7:38 AM CONTINUOUS PROCESS COFFEE ROASTER HM DIABETES FOOT EXAM Routine 05/11/2019 HEPATITIS C AB REFLEX RNA QUANT PCR Routine 04/17/2017 12:51 PM CDT DIGITAL MAMMOGRAPHY Routine 04/23/2016 1 0:41 AM CDT from Last 3 Months or Most Recently Relevant to Health Maintenance Results * eGFR (03/02/2025 2:30 PM CDT) eGFR 83 >=60 mL/min/1. 73 m2 Comment: Interpretive Data Reference Interval Normal >/= 90 mL/min/1.73m2 Mildly decreased* 60 - 89 mL/min/1.73m2 Mildly to moderately decreased 45 - 59 mL/min/1.73m2 Moderately to severely decreased 30 - 44 mL/min/1.73m2 Severely decreased 15 - 29 mL/min/1.73m2 Kidney Failure < 15 mL/min/1.73m2 *Relative to young adult level Estimated glomerular filtration rate is determined by the 2020 CKD-EPI equation recommended by the National Kidney Foundation (A Unifying Approach to GFR Estimation: Recommendations of the NKF-ASK Task Force on Reassessing the Inclusion of Race in Diagnosing Kidney Disease, JASN 202). The CKD-EPI equation should not be used for patients with unstable renal function and has not been validated in children and those over 70. Current interpretive data was last reviewed 2021. Testing performed by: [address] [address] Blood 03/02/2025 2:30 PM CDT 03/02/2025 8:55 PM CDT Connie Wan ENGINEER SPECIALIST LAB BLOOD ORDERABLES Final Result [facility] [address] Department [place] [address] * (ABNORMAL) Differential, auto (03/02/2025 2:30 PM CDT) Neutrophil abs 1.76 1.50 - 6.50 K/cumm Comment:Testing performed by : [address] [address] Imm gran abs 0.01 0.00 - 0.10 K/cumm JONO Comment:Testing performed by : [address], [address] Lymphocyte abs 3.35(H) 0.80 - 3.30 K/cumm JONO Comment:Testing performed by : [address], [address] Monocyte abs 0.49 0.20 - 0.80 K/cumm JONO Comment:Testing performed by : [address] [address] Eosinophil abs 0.17 0.00 - 0.50 K/cumm JONO Comment:Testing performed by : [facility], [address], [place]., [address] Basophil abs 0.05 0.00 - 0.10 K/cumm CERNER CH Comment:Testing performed by : [address] [address] Neutrophil pct 30.1 % CERNER CH Comment: Interpretive Data Percent cell count reference ranges are not reported, since discordance with absolute values may lead to misinterpretation of CBC data. Current Interpretive Data was last revised on 2017. Testing performed by: [address] [address] Imm gran pct 0.2 % CERNER CH Comment: Interpretive Data Percent cell count reference ranges are not reported, since discordance with absolute values may lead to misinterpretation of CBC data. Current Interpretive Data was last revised on 2017. Testing performed by: [address] [address] Lymphocyte pct 57.5 % CERNER CH Comment: Interpretive Data Percent cell count reference ranges are not reported, since discordance with absolute values may lead to misinterpretation of CBC data. Current Interpretive Data was last revised on 2017. Testing performed by: [address] [address] Monocyte pct 8.4 % CERNER CH Comment: Interpretive Data Percent cell count reference ranges are not reported, since discordance with absolute values may lead to misinterpretation of CBC data. Current Interpretive Data was last revised on 2017. Testing performed by: [address] [address] Eosinophil pct 2.9 % CERNER CH Comment: Interpretive Data Percent cell count reference ranges are not reported, since discordance with absolute values may lead to misinterpretation of CBC data. Current Interpretive Data was last revised on 2017. Testing performed by: [address] [address] Basophil pct 0.9 % CERNER CH Comment: Interpretive Data Percent cell count reference ranges are not reported, since discordance with absolute values may lead to misinterpretation of CBC data. Current Interpretive Data was last revised on 2017. Testing performed by: [address], [address] Blood 03/02/2025 2:30 PM CDT 03/02/2025 8:46 PM CDT Connie Wan NP LAB BLOOD ORDERABLES Final Result [address] Department [place] [address] * CBC with auto differential (03/02/2025 2:30 PM CDT) WBC 5.83 3.80 - 9.90 K/cumm Comment:Testing performed by : [address], [address] Hgb 13.3 11.9 - 15.5 g/dL CERNER Comment:Testing performed by : [address], [address] Hct 40.9 35.6 - 45.5 % CERNER CH Comment:Testing performed by : [address], [address] Plt 284 150 - 400 K/cumm CERNER CH Comment:Testing performed by : [address], [address] MPV 10.4 9.1 - 12.3 fL CERNER CH Comment:Testing performed by : [address], [address] RBC 4.58 3.90 - 5.20 M/cumm CERNER CH Comment:Testing performed by : [address], [address] MCV 89.3 81.3 - 96.4 fL CERNER CH Comment:Testing performed by : [address], [address] MCH 29.0 27.1 - 33.3 pg CERNER CH Comment:Testing performed by : [address], [address] MCHC 32.5 32.3 - 35.7 g/dL CERNER CH Comment:Testing performed by : [address], [address] RDW CV 13.6 11.1 - 14.9 % CERNER CH Comment:Testing performed by : [facility], [address] [place] [address]., [address] RDW SD 44.9 35.7 - 48.1 fL JONO Comment:Testing performed by : [facility], [address] [place] [address]., [address] NRBC abs 0.00 0.00 - 0.01 K/cumm JONO Comment:Testing performed by : [facility], [address] [place] [address], [address] Blood 03/02/2025 2:30 PM CDT 03/02/2025 8:46 PM CDT Narrative JONO - 03/02/2025 9:06 PM CDT Connie Wan ENGINEER SPECIALIST LAB BLOOD ORDERABLES Final Result Performing Organization Address City/[facility]/ZIP Co de Phone Number JONO [facility] Department [place] [email or web address] [place] [address] * TSH (03/02/2025 2:30 PM CDT) Thyroid Stimulating Hormone 2.67 0.30 - 4.20 mcIUnit/mL Comment:Testing performed by : [facility], [address] [place] [address], [address] Blood Venous blood specimen / Unknown 03/02/2025 2:30 PM CDT 03/02/2025 8:46 PM CDT Narrative JONO - 03/02/2025 9:49 PM CDT Connie Wan ENGINEER SPECIALIST LAB BLOOD ORDERABLES Final Result JONO [id number] [place] [address] Department [email or web address] [place] [address] * Bilirubin, direct (03/02/2025 2:30 PM CDT) Bilirubin, direct 0.1 0.1 - 0.3 mg/dL Comment:Testing performed by : [facility], [address], [place]., [address] Blood 03/02/2025 2:30 PM CDT 03/02/2025 8:46 PM CDT Connie Wan ENGINEER SPECIALIST LAB BLOOD ORDERABLES Final Result [address] Department [place] [address] * (ABNORMAL) Comprehensive metabolic panel (03/02/2025 2:30 PM CDT) Sodium 142 135 - 145 mmol/L Comment:Testing performed by : [address], [address] Potassium, pl 4.7 3.3 - 4.9 mmol/L [facility] Comment:Testing performed by : [address], [address] Chloride 103 97 - 110 mmol/L [facility] Comment:Testing performed by : [address], [address] CO2 26 22 - 32 mmol/L [facility] Comment:Testing performed by : [address], [address] Anion gap 13 2 - 15 mmol/L [facility] Comment:Testing performed by : [address], [address] BUN 27(H) 6 - 25 mg/dL [facility] Comment:Testing performed by : [address], [address] Creatinine 0.76 0.60 - 1.10 mg/dL [facility] Comment:Testing performed by : [address], [address] Glucose 70 70 - 199 mg/dL [facility] Comment: Interpretive Data Fasting glucose >/= 126 mg/dl is diagnostic for diabetes. Fasting is defined as no caloric intake for at least 8 hours. Fasting glucose between 100 mg/dl to 125 mg/dl is diagnostic of prediabetes. In a patient with classic symptoms of hyperglycemia or hyperglycemic crisis, a random glucose >/= 200 mg/dl is diagnostic for diabetes. In the absence of unequivocal hyperglycemia, results should be confirmed by repeat testing. The classification and Diagnosis of Diabetes Diabetes Care 202; 46: S19-S40. Current interpretive data was last revised 2022. Testing performed by: [facility], [address] [place] [address]., [address] Calcium 9.9 8.5 - 10.3 mg/dL CERNER Comment:Testing performed by : [facility], [address] [place] [address]., [address] Bilirubin, total 0.3 0.1 - 1.2 mg/dL CERNER CH Comment:Testing performed by : [facility], [address] [place] [address]., [address] Protein, pl 7.0 6.5 - 8.5 g/dL CERNER CH Comment:Testing performed by : [facility], [address] [place] [address]., [address] Albumin 4.4 3.5 - 5.0 g/dL CERNER CH Comment:Testing performed by : [address], [address] Alk phos 70 40 - 130 Units/L CERNER CH Comment:Testing performed by : [facility], [address] [place] [address]., [address] ALT 16 7 - 45 Units/L CERNER CH Comment:Testing performed by : [address] [address] AST 28 10 - 45 Units/L CERNER Comment:Testing performed by : [address] [address] Blood 03/02/2025 2:30 PM CDT 03/02/2025 8:46 PM CDT Narrative [facility] - 03/02/2025 9:49 PM CDT us Connie Wan NP LAB BLOOD ORDERABLES Final Result [facility] [address] Department [place] [address] * XR Abdomen 1 View AP (03/02/2025 2:08 PM CDT) Anatomical Region Laterality Modality Body, Abdomen N/A Computed Radiogr aphy 03/19/2025 1:42 PM CDT Narrative 03/19/2025 1:43 PM CDT EXAM DESCRIPTION: XR ABDOMEN AP 1 VIEW REASON FOR STUDY: other Chronic constipation Pt states there is a knot on her left middle quadrant Hx of surgery in 1977 Last BM was last night TECHNIQUE: 2 radiographic view of the abdomen. COMPARISON: 09/10/2021 FINDINGS: BOWEL: Nonobstructive gas pattern. Moderately prominent amount of stool is noted. SOFT TISSUES: No abnormal calcifications. LINES/TUBES: None. BONES: No acute osseous abnormality. IMPRESSION: Moderately prominent amount of stool may suggest constipation. No evidence of the obstruction is seen. THIS IS AN ELECTRONICALLY VERIFIED FINAL REPORT 03/19/2025 1:43 PM - Electronically signed by Cristhian BROWN: KEVIN Report ID: [id number] Reading Location: [id number] Procedure Note Cristhian Hedrick MD - 03/19/2025 EXAM DESCRIPTION: XR ABDOMEN AP 1 VIEW REASON FOR STUDY: other Chronic constipation Pt states there is a knot on her left middlequadrant Hx of surgery in 1977 Last BM was last night TECHNIQUE: 2 radiographic view of the abdomen. COMPARISON: 09/10/2021 FINDINGS: BOWEL: Nonobstructive gas pattern. Moderately prominent amount of stoolis noted. SOFT TISSUES: No abnormal calcifications. LINES/TUBES: None. BONES: No acute osseous abnormality. IMPRESSION: Moderately prominent amount of stool may suggest constipation. No evidenceof the obstruction is seen. THIS IS AN ELECTRONICALLY VERIFIED FINAL REPORT 03/19/2025 1:43 PM - Electronically signed by Cristhian BROWN: KEVIN Report ID: [id number] Reading Location: [id number] us Connie Wan NP IMG XR PROCEDURES Final Re sult * (ABNORMAL) Hemoglobin A1c (12/14/2024 9:18 AM CDT) Hgb A1C 7.1(H) 4.0 - 5.6 % Estimated Average Glucose 157 mg/dL JONO CORBETT (LISBETH) Comment: The ADA recommends reporting an estimated Average Glucose (eAG) with all Hemoglobin A1c results using the equation derived from a study of 507 normal and diabetic adults. Minority populations were underrepresented and children were not included. (Diabetes Care 31:4453-7107, 2008). The eAG is not equivalent to a fasting glucose. Blood 12/14/2024 9:18 AM CDT 12/14/2024 9:45 AM CDT us German Barrera MD LAB BLOOD ORDERABLES Fi nal Result JONO CORBETT (LISBETH) [address] [facility] Department [place] [address] * Lipid panel (12/14/2024 9:18 AM CDT) Cholesterol 194 30 - 199 mg/dL Comment: Interpretive Data Ages < or = 19 years Acceptable: <170 mg/dL Borderline high: 170-199 mg/dL High: >or= 200 mg/dL Ages > or = 20 years Desirable: <200 mg/dL Borderline high: 200-239 mg/dL High: >or= 240 mg/dL Literature References: 1. Expert Panel on Integrated Guidelines for Cardiovascular Health and Risk Reduction in Children and Adolescents. Pediatrics 2011;128:S213 2. NCEP Expert Panel. Circulation 2004;110:227 Current Interpretive Data was last revised on 2018. Triglycerides 63 <=149 mg/dL JONO CORBETT (LISBETH) Comment: Interpretive Data Ages < or = 9 years Acceptable: <75 mg/dL Borderline high: 75-99 mg/dL High: >or= 100 mg/dL Ages 10 to 20 years Acceptable: <90 mg/dL Borderline high: 90-129 mg/dL High: >or= 130 mg/dL Ages > or = 20 years Desirable: <150 mg/dL Borderline high: 150-199 mg/dL High: 200-499 mg/dL Very high: >or= 499 mg/dL Literature References: 1. Expert Panel on Integrated Guidelines for Cardiovascular Health and Risk Reduction in Children and Adolescents. Pediatrics 2011;128:S213 2. NCEP Expert Panel. Circulation 2004;110:227 Current Interpretive Data was last revised on 2018. HDL 78 >=40 mg/dL JONO Littlejohn (LISBETH) Comment: Interpretive Data Ages < or = 19 years Acceptable: >45 mg/dL Borderline low: 40-45 mg/dL Low: <40 mg/dL Ages > or = 20 years Desirable: >or= 60 mg/dL Low: <40 mg/dL Literature References: 1. Expert Panel on Integrated Guidelines for Cardiovascular Health and Risk Reduction in Children and Adolescents. Pediatrics 2011;128:S213 2. NCEP Expert Panel. Circulation 2004;110:227 Current Interpretive Data was last revised on 2018. LDL, calculated 104 <=129 mg/dL JONO CORBETT (LISBETH) Comment: Interpretive Data Ages < or = 19 years Acceptable: <110 mg/dL Borderline high: 110-129 mg/dL High: >or= 130 mg/dL Ages > or = 20 years Optimal: <100 mg/dL Near optimal: 100-129 mg/dL Borderline high: 130-159 mg/dL High: >160 mg/dL Calculated using the Brent LDL-C estimating equation. This equation was implemented on 2024. Prior to this date LDL-C was estimated using the Friedewald equation. Literature References: 1. Expert Panel on Integrated Guidelines for Cardiovascular Health and Risk Reduction in Children and Adolescents. Pediatrics 2011;128:S213 2. NCEP Expert Panel. Circulation 2004;110:227 3. Brent Hare et al. KAITY Cardiol. 2020 November 18;5(5):540-548. doi: 10.1001/jamacardio.2020.0013 Current Interpretive Data was last revised on 2024. Non-HDL Cholesterol 116 mg/dL JONO CORBETT (LISBETH) Comment: Interpretive Data Ages < or = 19 years Acceptable: <120 mg/dL Borderline high: 120-144 mg/dL High: >145 mg/dL Ages > or = 20 years When triglycerides are >200 mg/dL, Non-HDL cholesterol is a secondary target of therapy with treatment goals that are 30 mg/dL greater than the LDL cholesterol target. Literature References: 1. Expert Panel on Integrated Guidelines for Cardiovascular Health and Risk Reduction in Children and Adolescents. Pediatrics 2011;128:S213 2. NCEP Expert Panel. Circulation 2004;110:227 Current Interpretive Data was last revised on 2018. Chol/HDL ratio 2 KATERINA CORBETT (LISBETH) Blood 12/14/2024 9:18 AM CDT 12/14/2024 9:45 AM CDT Narrative JONO CORBETT (LISBETH) - 12/14/2024 10:44 AM CDT Has the patient been fasting for 8 hours or more?->Yes us German Barrera MD LAB BLOOD ORDERABLES Fi nal Result JONO CORBETT (LISBETH) 1 [facility] Department [place] [address] * Diabetic Eye Exam (09/29/2024) us Generic External Data Provider HEALTH MAINTENANC E Final Result * Stool DNA - Cologuard (06/29/2024 9:45 AM CONTINUOUS PROCESS COFFEE ROASTER) Stool DNA - Cologuard Negative Negative Fl[employer]ours (CLIA #:[id number]) Comment: NEGATIVE TEST RESULT. A negative Cologuard result indicates a low likelihood that a colorectal cancer (CRC) or advanced adenoma (adenomatous polyps with more advanced pre-malignant features) is present. The chance that a person with a negative Cologuard test has a colorectal cancer is less than 1 in 1500 (negative predictive value >99.9%) or has an advanced adenoma is less than 5.3% (negative predictive value 94.7%). These data are based on a prospective cross-sectional study of 10,000 individuals at average risk for colorectal cancer who were screened with both Cologuard and colonoscopy. (Meagan Pressley al, N Engl J Med 2014;370(14):9157-7116) The normal value (reference range) for this assay is negative. COLOGUARD RE-SCREENING RECOMMENDATION: Periodic colorectal cancer screening is an important part of preventive healthcare for asymptomatic individuals at average risk for colorectal cancer. Following a negative Cologuard result, the [place] Cancer Society and U.S. Multi-Society Task Force screening guidelines recommend a Cologuard re-screening interval of 3 years. References: [place] Cancer Society Guideline for Colorectal Cancer Screening: https://www.cancer.org/cancer/jfdbj-ehculp-bqgsfi/ebieonmlj-ugyxebciz-boslryv/ac s-rec ommendations.html.; Juan DK, Sonny MABRY, Crystal DumontK, Colorectal Cancer Screening: Recommendations for Physicians and Patients from the U.S. Multi-Society Task Force on Colorectal Cancer Screening , Am J Gastroenterology 2017; 112:9463-6417. TEST DESCRIPTION: Composite algorithmic analysis of stool DNA-biomarkers with hemoglobin immunoassay. Quantitative values of individual biomarkers are not reportable and are not associated with individual biomarker result reference ranges. Cologuard is intended for colorectal cancer screening of adults of either sex, 45 years or older, who are at average-risk for colorectal cancer (CRC). Cologuard has been approved for use by the U.S. FDA. The performance of Cologuard was established in a cross sectional study of average-risk adults aged 50-84. Cologuard performance in patients ages 45 to 49 years was estimated by sub-group analysis of near-age groups. Colonoscopies performed for a positive result may find as the most clinically significant lesion: colorectal cancer [4.0%], advanced adenoma (including sessile serrated polyps greater than or equal to 1cm diameter) [20%] or non- advanced adenoma [31%]; or no colorectal neoplasia [45%]. These estimates are derived from a prospective cross-sectional screening study of 10,000 individuals at average risk for colorectal cancer who were screened with both Cologuard and colonoscopy. (Meagan Pressley al, N Engl J Med 2014;370(14):9365-7630.) Cologuard may produce a false negative or false positive result (no colorectal cancer or precancerous polyp present at colonoscopy follow up). A negative Cologuard test result does not guarantee the absence of CRC or advanced adenoma (pre-cancer). The current Cologuard screening interval is every 3 years. ([place] Cancer Society and U.S. Multi-Society Task Force). Cologuard performance data in a 10,000 patient pivotal study using colonoscopy as the reference method can be accessed at the following location: www.[employer]El[employer].com/results. Additional description of the Cologuard test process, warnings and precautions can be found at www.TravelSharkrd.Santech. Stool 06/29/2024 9:45 AM CONTINUOUS PROCESS COFFEE ROASTER 06/30/2024 9:59 AM CONTINUOUS PROCESS COFFEE ROASTER us German Barrera MD LAB BODY FLUIDS AND STO OLS ORDERABLES Final Result Performing Organization Address City/[facility]/ZIP Co de Phone Number [facility] (CLIA #:[id number]) [place] [address] * Albumin Creatinine Ratio, Urine (05/31/2024 9:16 AM CONTINUOUS PROCESS COFFEE ROASTER) Albumin Ur <12.0 mg/L Comment: Interpretive Data No reference range established. Current interpretive data was last revised 2018. Testing performed by: [facility], [address] [place] [address]., [address] Creatinine Ur 104.6 mg/dL JONO CORBETT (LISBETH) Comment: Interpretive Data No reference range established. Current interpretive data was last revised 2018. Testing performed by: [facility], [address] [place] [address]., [address] Albumin Creatinine Ratio, Ur <11 1 - 29 mg/g JONO CORBETT (LISBETH) Comment:Testing performed by : [address] [address] Urine 05/31/2024 9:16 AM CONTINUOUS PROCESS COFFEE ROASTER 05/31/2024 11:12 AM CONTINUOUS PROCESS COFFEE ROASTER Narrative JONO [facility] (LISBETH) - 05/31/2024 11:41 AM CONTINUOUS PROCESS COFFEE ROASTER Fasting us German Barrera MD LAB URINE ORDERABLES Fi nal Result Performing Organization Address [facility] Co de Phone Number JONO CORBETT (LISBETH) 1 [facility] Department [place] [address] * Dexa Axial Skeleton Bone Density 1 or 2 Site (01/04/2021 1:28 PM CDT) Anatomical Region Laterality Modality Body N/A Other 01/05/2021 2:17 PM CDT Narrative 01/05/2021 2:18 PM CDT EXAM DESCRIPTION: DEXA AXIAL SKELETON BONE DENSITY 1 OR MORE SITES REASON FOR STUDY: 65 year old postmenopausal white female with given history of screening. Community Service Specialist/Model: [employer] (S/N [id number]) CLINICAL INFORMATION: Current height: 60 inches Maximum height: 60 inches Weight: 115 pounds Risk factors: Inflammatory bowel disease. Does not perform regular weight-bearing exercise. Regularly consumes dairy products. Drinks caffeinated beverages. COMPARISON: None available. FINDINGS: AP LUMBAR SPINE L1-L4: Total BMD is 0.929 g/cm2 T-score is -1.1 LEFT HIP: Total BMD is 1.036 g/cm2 T-score is 0.8 Femoral neck BMD is 0.799 g/cm2 T-score is -0.5 Fracture risk assessment (FRAX): 10 year risk for a major osteoporotic fracture is 7.2 % 10 year risk for a hip fracture is 0.5 % The FRAX tool has not been validated in patients currently or previously treated with pharmacotherapy for osteoporosis. In such patients, clinical judgement must be exercised in interpreting FRAX scores as the fracture risk may be overestimated. IMPRESSION: Low bone mass. REFERENCE: Bone mineral density: Normal (T-score above or = -1.0) Low bone mass (T-score between -1.0 and -2.5) replaces the previously used term osteopenia Osteoporosis (T-score = or below -2.5) Medical evaluation for secondary causes of low bone mineral density may be appropriate. FRAX is a World Health Organization validated fracture risk assessment tool that calculates a person's 10 year probability of a major osteoporosis related fracture and hip fracture. According to the National Osteoporosis Foundation guidelines, postmenopausal women and men age 50 or older with low bone mass and a 10 year probability of a major osteoporosis related fracture = or greater than 20% or a 10 year probability of a hip fracture = or greater than 3% should be considered for treatment. For further information, including treatment recommendations, please refer to the 2013 ISCD Official Positions (http://www.iscd.org) and the NOF's Clinician's Guide to Prevention and Treatment of Osteoporosis (http://www.nof.org/professionals/clinical-guidelines) THIS IS AN ELECTRONICALLY VERIFIED FINAL REPORT 01/05/2021 2:18 PM - Electronically signed by Gregory John M.D. RB: BRENDA Report ID: [id number] Reading Location: [place] [address] Procedure Note Gregory John MD - 01/05/2021 EXAM DESCRIPTION: DEXA AXIAL SKELETON BONE DENSITY 1 OR MORE SITES REASON FOR STUDY: 65 year old postmenopausal white female with given history of screening. Community Service Specialist/Model: Movable (S/N [id number]) CLINICAL INFORMATION: Current height: 60 inches Maximum height: 60 inches Weight: 115 pounds Risk factors: Inflammatory bowel disease. Does not perform regular weight-bearing exercise. Regularly consumes dairy products. Drinks caffeinated beverages. COMPARISON: None available. FINDINGS: AP LUMBAR SPINE L1-L4: Total BMD is 0.929 g/cm2 T-score is -1.1 LEFT HIP: Total BMD is 1.036 g/cm2 T-score is 0.8 Femoral neck BMD is 0.799 g/cm2 T-score is -0.5 Fracture risk assessment (FRAX): 10 year risk for a major osteoporotic fracture is 7.2 % 10 year risk for a hip fracture is 0.5 % The FRAX tool has not been validated in patients currently or previously treated with pharmacotherapy for osteoporosis. In such patients, clinical judgement must be exercised in interpreting FRAX scores as the fracturerisk may be overestimated. IMPRESSION: Low bone mass. REFERENCE: Bone mineral density: Normal (T-score above or = -1.0) Low bone mass (T-score between -1.0 and -2.5) replaces thepreviously used term osteopenia Osteoporosis (T-score = or below -2.5) Medical evaluation for secondary causes of low bone mineral density may be appropriate. FRAX is a World Health Organization validated fracture risk assessmenttool that calculates a person's 10 year probability of a major osteoporosisrelated fracture and hip fracture. According to the National OsteoporosisFoundation guidelines, postmenopausal women and men age 50 or older with low bonemass and a 10 year probability of a major osteoporosis related fracture = or greater than 20% or a 10 year probability of a hip fracture = or greaterthan 3% should be considered for treatment. For further information, including treatment recommendations, please referto the 2013 ISCD Official Positions (http://www.iscd.org) and the NOF's Clinician's Guide to Prevention and Treatment of Osteoporosis (http://www.nof.org/professionals/clinical-guidelines) THIS IS AN ELECTRONICALLY VERIFIED FINAL REPORT 01/05/2021 2:18 PM - Electronically signed by Gregory John M.D. 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 Room: [facility] ENDOSCOPY ROOM 2 Note Status: Finalized Patient Profile: Refer to note in patient chart for documentation of history and physical. Procedure: Colonoscopy Indications: High risk colon cancer surveillance: Personalhistory of colonic polyps, Last colonoscopy: June 2013 Referring MD: German Barrera M.D. Providers: Tristen Correia M.D. Impression: - Hemorrhoids found on perianal exam. - Diverticulosis in the sigmoid colon, in the descending colon, at the hepatic flexure and in the ascending colon. - The examination was otherwise normal. - No specimens collected. Recommendation: - Discharge patient to home. - Resume previous diet. - Continue present medications. - Await pathology results. - Repeat colonoscopy in 5 years for surveillance. - Return to primary care physician as previously scheduled. Medicines: Propofol per Anesthesia Complications: No immediate complications. Estimated Blood Loss: Estimated blood loss: none. Procedure: Pre-Anesthesia Assessment: - This assessment was completed [Time of Assessment] prior to the administration of sedation. The benefits, risks and alternatives of theprocedure and sedation were discussed and informed consent was obtained. All questions were answered. Please referto the signed informed consent document in the medical record. The bowel preparation used was Miralax. The bowel preparation used was bisacodyl tablets. Bowel prep was administered using a single dose. The scope was passed under direct vision. The Colonoscope [id number] was introduced through the anusand advanced to the the cecum, identified by appendiceal orifice and ileocecal valve. The colonoscopy was extremely difficult due to multiple diverticula inthe colon. Successful completion of the procedure wasaided by using manual pressure. The patient tolerated the procedure well. The quality of the bowel preparation was excellent. Findings: Hemorrhoids were found on perianal exam. Multiple small and large-mouthed diverticula were found in thesigmoid colon, descending colon, hepatic flexure and ascending colon. The exam was otherwise without abnormality. Electronically signed by Tristen Correia M.D. Tristen Correia M.D. 06/29/2019 9:32:44 AM Number of Addenda: 0 Note Initiated On: 06/29/2019 7:38 AM Procedure Code(s): --- Professional --- G0105, Colorectal cancer screening; colonoscopy on individual at high risk Diagnosis Code(s): --- Professional --- K57.30, Diverticulosis of large intestine without perforation orabscess without bleeding K64.9, Unspecified hemorrhoids Z86.010, Personal history of colonic polyps CPT copyright 2017 [employer]. All rights reserved. The codes documented in this report are preliminary and upon health information coder reviewmay be revised to meet current compliance requirements. Recognized by the [employer] for promoting quality in endoscopy Tristen Correia MD ENDOSCOPY PROCEDURES Final Re sult * DIABETES FOOT EXAM (05/11/2019) Pathologist [facility] Diabetic Foot Exam Normal Historical Provider HEALTH MAINTENANCE Final Result * Hepatitis C Antibody Reflex Hepatitis C RNA Quantitative PCR (04/17/2017 12:51 PM CDT) Pathologist [facility] Hep C Ab Negative Negative JONO BRIDGES Blood specimen (specimen) 04/17/2017 12:51 PM CDT 04/17/2017 12:54 PM CDT German Barrera MD LAB MICROBIOLOGY - GENE RAL ORDERABLES Final Result JONO [address] Department [place] [address] * DIGITAL MAMMOGRAPHY (04/23/2016 10:41 AM CDT) Anatomical Region Laterality Modality Breast Mammography 04/23/2016 10:4 1 AM CDT Narrative 05/01/2016 9:03 PM CDT Vm Mammogram Performed by: DR Stewart Mamm Bi Acc#: [id number] DATE OF EXAM: Apr 23 2016 CLINICAL HISTORY: Screening. Family history of breast cancer (cousin). RESULT: Craniocaudal, exaggerated lateral craniocaudal and mediolateral oblique views demonstrate heterogeneously dense parenchyma in the breasts bilaterally. No dominant mass, skin thickening, nipple retraction or suspicious cluster of microcalcifications is seen. A few benign appearing calcifications are observed bilaterally. Digital technology was employed plus computer-aided detection software (Flipswap) was utilized in interpretation of these images. This facility utilizes a reminder system to notify patients of yearly mammograms. IMPRESSION: 1. NO FINDINGS SUSPICIOUS FOR MALIGNANCY. 2. IF PRIOR MAMMOGRAMS FROM [facility] ARE OBTAINED FOR COMPARISON, AN ADDENDUM REPORT WILL FOLLOW. 3. OTHERWISE, RECOMMEND RESCREENING IN ONE YEAR. BI RADS CATEGORY [address] ESCOTO/ 05/01/2016 Comparison to mammogram at [facility] on 12/01/2010 shows a similar pattern of heterogeneously dense parenchyma in the breasts bilaterally without interval changes suspicious for malignancy. Benign appearing calcifications are stable. Recommend rescreening in one year. BI-RAD 2 - BENIGN FINDINGS Interpreting Physician: DR LUIS ESCOTO M.D. Read on: Apr 23 2016 10:41A Transcribed by: brittney On: Apr 23 2016 6:11P Approved Electronically by: TIGIST Patino, DR MURRAY on: May 01 2016 9:03P Attending: DR GERMAN BARRERA Requesting: BLANCA GARCIA Requesting Attending Attending ID: [id number] Requesting ID: [id number] Report To 1 ID: [id number] Report To 1 Name: DR GERMAN BARRERA Report To 1 FAX: [phone] NextGen Order #: Procedure Note Provider, MD Adriana - 11/26/2016 Vm Mammogram Performed by: DR Stewart Mamm Bi Acc#: [id number] DATE OF EXAM: Apr 23 2016 CLINICAL HISTORY: Screening. Family history of breast cancer (cousin). RESULT: Craniocaudal, exaggerated lateral craniocaudal and mediolateral obliqueviews demonstrate heterogeneously dense parenchyma in the breastsbilaterally. No dominant mass, skin thickening, nipple retraction orsuspicious cluster of microcalcifications is seen. A few benign appearingcalcifications are observed bilaterally. Digital technology was employedplus computer-aided detection software (R2) was utilized in interpretationof these images. This facility utilizes a reminder system to notifypatients of yearly mammograms. IMPRESSION: 1. NO FINDINGS SUSPICIOUS FOR MALIGNANCY. 2. IF PRIOR MAMMOGRAMS FROM [facility] ARE OBTAINED FORCOMPARISON, AN ADDENDUM REPORT WILL FOLLOW. 3. OTHERWISE, RECOMMEND RESCREENING IN ONE YEAR. BI RADS CATEGORY 2BENIGN FINDING. ADDENDUM DR. ESCOTO/YC 05/01/2016 Comparison tomammogram at [facility] on 12/01/2010 shows a similar patternof heterogeneously dense parenchyma in the breasts bilaterally withoutinterval changes suspicious for malignancy. Benign appearingcalcifications are stable. Recommend rescreening in one year. BI-RAD 2 -BENIGN FINDINGS Interpreting Physician: DR LUIS ESCOTO M.D. Read on: Apr 23 201610:41A Transcribed by: brittney On: Apr 23 2016 6:11P Approved Electronically by: TIGIST Patino, DR MURRAY on: May 01 20169:03P Attending: DR GERMAN BARRERA Requesting: BLANCA GARCIA Requesting Attending Attending ID: [id number] Requesting ID: [id number] Report To 1 ID: [id number] Report To 1 Name: DR GERMAN BARRERA Report To 1 FAX: [phone] NextGen Order #: Historical Provider MD STOREY MAMMO PROCEDURES Yumi l Result from Last 3 Months or Most Recently Relevant to Health Maintenance Additional Health Concerns Infection Onset Date Last Indicated MDR gram neg/ESBL Comment:ESBL E.coli+Urine 04/23/18 04/23/2018 04/23/2018 Insurance MEDICARE AETNA SENIOR SUPPLEMENT MEDICARE AETNA MEDICARE AETNA SENIOR SUPPLEMENT Advance Directives For more information, please contact: [phone] * Full Code (Latest Code Status on File) Date Activated Date Inactivated Comments 06/29/2019 7:48 AM 06/29/2019 2:17 PM * Full Code Date Activated Date Inactivated Comments 06/29/2019 7:47 AM 06/29/2019 7:48 AM * Full Code Date Activated Date Inactivated Comments 03/12/2019 6:18 PM 03/13/2019 1:27 PM 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
[2025-03-24 07:07] VITALS: BP 138/69; PULSE 71; RESP 18; TEMP 36.6; O2SAT 100
[2025-03-24] MEDS: LACTATED RINGERS 1,000 ML 150 ML IV CONT (07:30)
--- NOTE | 2025-03-24 07:56 | P.PNAN_ITS ---
Anes - Initial Pre Proc Eval Procedure: Operation Date: 03/24/25 08:30 Proposed Procedures p EGD & Diagnostic Colonoscopy - Fred Cruz MD Date/Time: 03/24/25 07:56 Surgeon: Fred Cruz MD Pre Op Diagnosis: constipation Patient Data Age: 70 Gender: F Height: 1.52 m Weight: 52 kg Last Vital Signs Temp 97.8 F 03/24/25 07:07 Pulse 71 03/24/25 07:07 Resp 18 03/24/25 07:07 BP 138/69 03/24/25 07:07 Pulse Ox 100 03/24/25 07:07 O2 Del Method Room Air 03/24/25 07:07 Allergies Allergy/AdvReac Type Severity Reaction Status Date / Time Iodinated Contrast Media Allergy Mild Hives Verified 03/24/25 07:06 Penicillins Allergy Mild Unknown Verified 03/24/25 07:06 Jxqgjcy-JRU-PsR Reductase Allergy Mild Unknown Verified 03/24/25 07:06 Inhibitor Home Medications ?Medication ?Instructions ?Recorded ?Confirmed ?Type hydrocortisone 2.5 % topical cream 1 applic RECTAL KHADIJAH LY PRN 01/18/25 03/14/25 History with perineal applicator hemorrhoids insulin glargine 100 unit/mL 15 unit subcut QAM 03/14/25 History subcutaneous solution (Lantus U-100 Insulin) insulin lispro-aabc 100 unit/mL 1 sliding scale dose s ubcut 01/18/25 03/14/25 H istory subcutaneous pen (Lyumjev KwikPen USEASDIRECTD U-100 Insulin) losartan 25 mg tablet 25 mg PO DAILY 01/18/25 08/12/12 History prednisolone acetate 1 % eye 1 drp EACH EYE Q12H 01/1803/14/25 History drops,suspension timolol 0.5 % eye drops 1 drp EACH EYE Q12H 01/18/25 03/14/25 History linaclotide 145 mcg capsule 145 mcg PO DAILY 03/14/25 03/14/25 History (Linzess) Laboratory Tests 03/24/25 07:25 POC Capillary Glucose 134 H mg/dl (65-105) Patient hx anesthesia problems: none Family hx anesthesia problems: none Results Review: All pre-operative results and documents have been reviewed as part of the pre- operative evaluation. [facility] Past Medical History Medical History Blindness Diabetes Social History Social History Smoking status: Never smoker Alcohol intake: never Substance use: never Substance use type: does not use Living arrangements: with family Additional living arrangements comments: with roque Angel Final PreProcedure Day of Procedure 03/24/25 07:56 Patient weight: normal Heart: regular rate and rhythm Lungs: clear to auscultation Airway: Mallampati scale class II Neurological: alert and oriented Last oral intake: >/= 8 hours ASA classification: II Emergent: no Anesthetic plan: proceed Anesthesia type and monitoring: general GIVS and standard monitoring Results Review: All pre-operative results and documents have been reviewed as part of the pre- operative evaluation. Informed Consent: The patient's anesthetic plan and its attendant risks and benefits were discussed with the patient/family/POA. Questions were solicited and answers provided to the satisfaction of the patient/family/POA.
--- NOTE | 2025-03-24 08:08 | WPDHPUPDATE1 ---
History and Physical Update Update Date/Time: 03/24/25 08:08 History and Physical has been reviewed, including an updated exam of the patient. There are NO changes in the patient's condition. Risks, benefits, and alternatives have been discussed and questions answered. Patient agrees to proceed with procedure.
[2025-03-24] MEDS: BENZOCAINE (*SP) 60 ML SPRAY CAN (HURRICAINE) 1 SPRAY MUCOUS MEM (08:12)
--- NOTE | 2025-03-24 08:19 | SUR.OPER ---
0817 EGD endo- 0821 colonoscopy started
--- NOTE | 2025-03-24 08:24 | S_PTH ---
PATIENT: Lore Oates LOC: [facility] Gill#:[id number] AGE/SX: 70/F ROOM: RE03/24/[address]: Fred Cruz MD : 1955 BED: DIS: 03/24/2025 SPEC #: [id number] RECD: 03/24/25 10:40 STATUS: ROSALIA FOX #: [id number] PAULIE: 03/24/25 08:[address]: Fred Cruz DEPT: [facility] Surgical RECD BY: Ira Mckenzie ENTERED: 03/24/25 10:40 SP TYPE: Surgical OTHR DR: Vikas BarreraMD Tissues: A - Gastric Biopsy B - Small Bowel Bx Procedures: Hematoxylin and Eosin Stain Gross and Microscopic Level 4
[2025-03-24 08:37] VITALS: BP 110/53; PULSE 76; RESP 17; O2SAT 100
[2025-03-24 08:47] VITALS: BP 112/55; PULSE 73; RESP 23; O2SAT 100
[2025-03-24 08:57] VITALS: BP 120/63; PULSE 65; RESP 19; O2SAT 100
== END 2025-03-24 09:16 | disposition home or self-care (01) ==
PROVIDERS: PCP Internal Medicine; Referring Provider Nurse Practitioner Family; Visit Provider Internal Medicine Gastroenterology
PROC: 0DJ08ZZ Inspection of Upper Intestinal Tract, Via Natural or Artificial Opening Endoscopic (ICD-10-PCS; CPT 45378; principal; 2025-03-24 08:30)
DX: K59.00 Constipation, unspecified (principal); K57.30 Diverticulosis of large intestine without perforation or abscess without bleeding; Z86.0100 Personal history of colon polyps, unspecified; R14.0 Abdominal distension (gaseous); E11.9 Type 2 diabetes mellitus without complications
CPT/HCPCS: 45378; 43239; 82948; 88305; J2003; J2704; J7120